=== PATIENT | male | born 1995 | race Two or more races ===

== ENCOUNTER 2017-06-05 15:48 | Emergency (ER) | payer BC ==
[~2017-06-05] VITALS: Ht 182.9 cm; Wt 74.8 kg
[2017-06-05 15:50] VITALS: BP 128/77
--- NOTE | 2017-06-05 15:52 | Emergency Room Report ---
History of Present Illness General Chief Complaint: UTI Present Illness HPI 22 yo male patient presents to ER complaining of urinary symptoms x10 days. Complains of urgency. Reports foul smell at onset of symptoms. Denies dysuria. Denies hematuria.Denies penile discharge. Denies fever or rash. Gentry chest pain, SOB, abdominal pain. Reports sexually active, last encounter was 2 weeks ago; did not use protection. Denies hx of STI. Reports up to date on vaccinations. Reports taking AZO pills for relief of symptoms. Reports did at home "AZO test" which was positive for infection. Reports flank pain. Denies dribbling. Denies pain radiating to tip of urine. Reports last BM today and normal, no blood. Denies hx of kidney stones. Denies hx of prostate problems. Denies hx of diabetes. Allergies: Coded Allergies: No Known Allergies (Unverified , 06/05/17) Patient History Past Medical History: see triage record Reviewed Nursing Documentation: PMH: Agreed, PSxH: Agreed Review of Systems All Other Systems: negative except mentioned in HPI Physical Exam Vital Signs Date Time Temp Pulse Resp B/P (MAP) Pulse Ox O2 Delivery O2 Flow Rate FiO2 06/05/17 15:50 98.4 61 18 128/77 98 Room Air 98.4 Sp02 EP Interpretation: reviewed, normal General Appearance: well appearing, no apparent distress, alert, GCS 15, non- toxic Head: normocephalic, atraumatic Eyes: bilateral eye normal inspection, bilateral eye PERRL ENT: hearing grossly normal, normal pharynx, no angioedema, normal voice, uvula midline, moist mucus membranes Neck: full range of motion Respiratory: lungs clear, normal breath sounds, no rhonchi, no respiratory distress, no accessory muscle use, no wheezing, speaking full sentences Cardiovascular #1: regular rate, rhythm, no edema Gastrointestinal: non tender, soft, no mass, non-distended, no guarding, no rebound Rectal: deferred Genitourinary: no CVA tenderness, deferred Musculoskeletal: back normal, digits/nails normal, gait/station normal, normal range of motion, non-tender Neurologic: alert, oriented x3, responsive, motor strength/tone normal, sensory intact Psychiatric: mood/affect normal Skin: no rash Lymphatic: no adenopathy Medical Decision Making PA Attestation Dr. Balderrama is my supervising Physician whom patient management has been discussed with. Diagnostic Impression: Primary Impression: Urinary tract infection Additional Impression: Sexually transmitted infection ER Course Pt presents to ED c/o urinary sx. DDX considered but are not limited to cystitis, pyelonephritis, STI. Low suspicion for kidney stones, no CVA tenderness, patient resting comfortably , talking without difficulty, no acute pain complaints. Prostate exam deferred. VITAL SIGNS are WNL, patient is afebrile. Ordered UA, Rocephin, and Azithromycin. ER COURSE Will treat for STI. Instructed patient to followup with STI clinic for further testing and treatment as needed. Informed patient to alert sexual partners of need to get tested and possibly treated. UA results positive for nitrites, will treat for UTI. Will use Cipro due to complaints of flank pain. Informed patient of results. Instructed patient to followup with primary care provider and discuss referral to . DISCHARGE: -Rx provided for Cipro. Patient is resting comfortably in chair, nontoxic appearing, in no acute distress, talking without difficulty and smiling. Will provide with patient care instructions and any necessary prescriptions. Patient understands and agrees to treatment plan. Patient encouraged to drink plenty of fluids. Patient to take medication as instructed. Care plan and follow-up instructions provided. Patient questions asked and answered. Reports understanding and agreement to treatment plan. Patient instructed to follow-up with primary care provider in 3 - 5 days. ER precautions given. Patient instructed to return to ER immediately for any new or worsening of symptoms. Including but not limited to fever, worsening pain , intractable vomiting. Labs Test 06/05/17 16:00 Urine Color [place] Urine Appearance Clear Urine pH 7 (4.5-8.0) Urine Specific [place] 1.000 (1.005-1.035) Urine Protein Negative (NEGATIVE) Urine Glucose (UA) Negative (NEGATIVE) Urine Ketones Negative (NEGATIVE) Urine Occult Blood Negative (NEGATIVE) Urine Nitrite Positive (NEGATIVE) Urine Bilirubin Negative (NEGATIVE) Urine Urobilinogen 1 MG/DL (0.0-1.0) Urine Leukocyte Esterase Negative (NEGATIVE) Urine RBC 0-2 /HPF (0 - 0) Urine WBC 0-2 /HPF (0 - 0) Urine Squamous Epithelial Cells Few /LPF (NONE/OCC) Urine Bacteria Moderate /HPF (NONE) Disposition: HOME, SELF-CARE Condition: Stable Scripts Ciprofloxacin Hcl* (CIPROFLOXACIN HCL*) 500 Mg Tablet 500 MG ORAL EVERY 12 HOURS for 7 Days, #14 TAB 0 Refills Prov: Rishi Messer 06/05/17 Patient Instructions: Sexually Transmitted Disease, [id number], Urinary Tract Infection, [id number] Additional Instructions: Followup with primary care provider in 3 -5 days. Discuss referral to . Discuss testing for Diabetes. Take medications as directed. Patient questions asked and answered. ER precautions given, patient instructed to return to ER immediately for any new or worsening of symptoms. Followup with STI clinic for testing and treatment as needed. Rishi Messer Jun 05, 2017 15:52
[2017-06-05] MEDS ORDERED: Azithromycin 250mg tab ORAL ONE (16:15)
[2017-06-05] MEDS ORDERED: Lidocaine 1% MPF 10mg/ml 5ml INJ ONE (16:15)
[2017-06-05 16:17] LABS: APPEARANCE,URINE CLEAR; BILIRUBIN, URINE NEGATIVE (NEGATIVE); GLUCOSE, URINE (UA) NEGATIVE (NEGATIVE); KETONES,URINE NEGATIVE (NEGATIVE); LEUKOCYTE ESTERASE ,URINE NEGATIVE (NEGATIVE); NITRITE,URINE POSITIVE (NEGATIVE); PH,URINE 7 (4.5-8.0); PROTEIN,URINE NEGATIVE (NEGATIVE); UROBILINOGEN,URINE 1 MG/DL (0.0-1.0)
[2017-06-05 16:18] LABS: COLOR,URINE ORANGE
[2017-06-05] MEDS ORDERED: CIPROFLOXACIN500 M2 ORAL (16:26)
[2017-06-05 16:32] VITALS: BP 128/77
== END 2017-06-05 16:48 | disposition home or self-care (01) ==
LOC: EMR 16:20
DX: N39.0 Urinary tract infection, site not specified (principal); A64 Unspecified sexually transmitted disease
CPT/HCPCS: 81003; 87086; 96372; 99284; J0696

== ENCOUNTER 2017-06-15 09:19 | Emergency (ER) | payer BC ==
[~2017-06-15] VITALS: Ht 182.9 cm; Wt 79.4 kg
[~2017-06-15 09:19] MED LIST: CIPROFLOXACIN500 M2 ORAL
[2017-06-15 09:29] VITALS: BP 124/78
[2017-06-15] MEDS ORDERED: Mylanta II UD 30ml ORAL ONE (10:00)
[2017-06-15] MEDS ORDERED: Ketorolac 30mg Inj IV ONE (10:00)
[2017-06-15] MEDS ORDERED: Dicyclomine HCl 10mg/5ml oral soln ORAL ONE (10:00)
[2017-06-15 10:13] LABS: BASOPHILS % (AUTO) 0.8 % (0.0-2.0); EOSINOPHILS % (AUTO) 1.9 % (0.0-3.0); HEMATOCRIT 44.8 % (42.0-52.0); HEMOGLOBIN 15.8 G/DL (14.2-18.0); LYMPHOCYTES % (AUTO) 41.3 % (20.0-45.0); MEAN CORPUSCULAR VOLUME 87 FL (80-99); MONOCYTES % (AUTO) 7.9 % (1.0-10.0); NEUTROPHILS % (AUTO) 48.1 % (45.0-75.0); PLATELET COUNT 238 K/UL (150-450); RED BLOOD COUNT 5.15 M/UL (4.70-6.10); RED CELL DISTRIBUTION WIDTH 10.6 % (11.6-14.8)
[2017-06-15 10:15] LABS: APPEARANCE,URINE CLEAR; BILIRUBIN, URINE NEGATIVE (NEGATIVE); COLOR,URINE PALE YELLOW; GLUCOSE, URINE (UA) NEGATIVE (NEGATIVE); KETONES,URINE NEGATIVE (NEGATIVE); LEUKOCYTE ESTERASE ,URINE NEGATIVE (NEGATIVE); NITRITE,URINE NEGATIVE (NEGATIVE); PH,URINE 7 (4.5-8.0); PROTEIN,URINE NEGATIVE (NEGATIVE); UROBILINOGEN,URINE NORMAL MG/DL (0.0-1.0)
[2017-06-15 10:21] LABS: ANION GAP 6 mmol/L (5-15); BLOOD UREA NITROGEN 8 mg/dL (7-18); CALCIUM 9.3 MG/DL (8.5-10.1); CARBON DIOXIDE 32 MMOL/L (21-32); CHLORIDE 103 MMOL/L (98-107); CREATININE 0.8 MG/DL (0.55-1.30); SODIUM 141 MMOL/L (136-145)
[2017-06-15 10:31] LABS: ALANINE AMINOTRANSFERASE 30 U/L (12-78); ALBUMIN 4.4 G/DL (3.4-5.0); ALBUMIN/GLOBULIN RATIO 1.3 (1.0-2.7); ALKALINE PHOSPHATASE 96 U/L (46-116); ASPARTATE AMINO TRANSFERASE 27 U/L (15-37); BILIRUBIN,TOTAL 1.5 MG/DL (0.2-1.0)
[2017-06-15 10:32] LABS: BILIRUBIN,DIRECT 0.3 MG/DL (0.0-0.3)
[2017-06-15 13:01] VITALS: BP 133/71
--- NOTE | 2017-06-15 13:02 | Emergency Room Report ---
History of Present Illness General Chief Complaint: General Complaint Source: Patient Present Illness HPI Patient presents with abdominal cramping. He was initially evaluated for this same problem 06/05, but at that time, he reported foul smelling urine and was taking Azo. He also had some R flank pain and the same L upper abdominal cramping as started last night and worsened today. Prior visit with "nitrites + " although was taking Azo (causes false +). Treated with Cipro and seemed to get better. Culture from 06/05 - no growth. Urine has cleared with Cipro. He had unprotected sex with his girlfriend. He had no symptoms with this. It was reported STD (basis of this unclear). Pain in his abdomen is 5/10, crampy, moving, but more LUQ. The flank pain seemed to be associated with this. He does have some anxiety about the problem and debated returning to ED. Normal BMs. No nausea or vomiting. No fevers. He ate usual foods, no travel or ill contacts. No URI sy, chest pain, joint pain, rashes, headaches, polies. His father had kidney stones. He remembers increased severe pain reported by his father. Allergies: Coded Allergies: No Known Allergies (Unverified , 06/05/17) Patient History Past Medical History: see triage record Social History: Denies: smoking Social History Narrative computers, from [place] Reviewed Nursing Documentation: PMH: Agreed; PSxH: Agreed Nursing Documentation-PMH Past Medical History: No Stated History Review of Systems All Other Systems: negative except mentioned in HPI Physical Exam Vital Signs Date Time Temp Pulse Resp B/P (MAP) Pulse Ox O2 Delivery O2 Flow Rate FiO2 06/15/17 09:25 98.1 64 18 124/78 98 Room Air 98.1 Sp02 EP Interpretation: reviewed, normal General Appearance: well appearing, no apparent distress, GCS 15 Head: normocephalic Eyes: bilateral eye normal inspection, bilateral eye PERRL ENT: moist mucus membranes Neck: supple Respiratory: lungs clear, normal breath sounds Cardiovascular #1: regular rate, rhythm Cardiovascular #2: 2+ radial (R) Gastrointestinal: normal inspection, normal bowel sounds, no mass, non- distended, no guarding, no rebound, tenderness - minimal LUQ Genitourinary: no CVA tenderness Musculoskeletal: back normal, gait/station normal, normal range of motion Neurologic: alert, oriented x3, grossly normal Psychiatric: mood/affect normal Skin: normal inspection, warm/dry Medical Decision Making Diagnostic Impression: Primary Impression: Abdominal pain Qualified Codes: R10.12 - Left upper quadrant pain Additional Impression: Back pain Qualified Codes: M54.9 - Dorsalgia, unspecified ER Course Patient re-presents with flank and abdominal crampy pain. DDX: stone, GItis, IBS, UTI, gastritis amongst others. Having pain R flank and LUQ is unusual. Crampy nature suggests more colic. Evaluation with labs and ua. Treatment with IV hydration, toradol, bentyl and mylanta. Labs with normal WBC, H/H and CMP (bili min elevated). Lipase normal. UA clear. Improved with treatment. (Though RN reports same pain, patient told me pain is gone.) Discussed possible etiologies for pain and need for eval by PMD (has none at this time). Discussed that urine was negative last time and that I doubted STD. (Consideration of rx bentyl if current Rx not helpful.) Patient stable for outpatient observation and treatment. Last Vital Signs Date Time Temp Pulse Resp B/P (MAP) Pulse Ox O2 Delivery O2 Flow Rate FiO2 06/15/17 13:01 98.1 106 18 133/71 98 Room Air Last Vital Signs Date Time Temp Pulse Resp B/P (MAP) Pulse Ox O2 Delivery O2 Flow Rate FiO2 06/15/17 13:01 98.1 106 18 133/71 98 Room Air Status: improved Disposition: HOME, SELF-CARE Condition: Improved Scripts Acetaminophen (Tylenol) 325 Mg Tablet 650 MG ORAL Q6H PRN for Prn Pain/Headache/Temp > 101, #20 TAB 0 Refills Prov: Colby Balderrama M.D. 06/15/17 Famotidine (PEPCID) 20 Mg Tablet 20 MG ORAL DAILY, #20 TAB 0 Refills Prov: Colby Balderrama M.D. 06/15/17 Referrals: NOT CHOSEN L[facility]/,REFERRING (PCP) Colby Balderrama M.D. Jun 15, 2017 13:02
[2017-06-15] MEDS ORDERED: PEPCID20 MG ORAL (13:04)
[2017-06-15] MEDS ORDERED: TYLENOL325 MG ORAL (13:04)
== END 2017-06-15 13:01 | disposition home or self-care (01) ==
LOC: EMR 09:43
DX: R10.9 Unspecified abdominal pain (principal); M54.9 Dorsalgia, unspecified
CPT/HCPCS: 36415; 80053; 81003; 82248; 83690; 85025; 96361; 96374; 99284; J1885